=== PATIENT | female | born 2000 | race Caucasian/White ===

== ENCOUNTER 2021-07-22 13:42 | Emergency (ER) | payer OTHER | END 2021-07-22 15:50 | disposition home or self-care (01) | LOC: CSHERS 13:42 | DX: S29.011A Strain of muscle and tendon of front wall of thorax, initial encounter (principal); F17.290 Nicotine dependence, other tobacco product, uncomplicated; X50.0XXA Overexertion from strenuous movement or load, initial encounter | CPT/HCPCS: 71046; 93005 ==